=== PATIENT | female | born 1970 | race Caucasian/White ===

== ENCOUNTER 2023-09-25 18:16 | Observation (INO) | payer MEDICAID ==
[2023-09-25] MEDS ORDERED: Sodium Chloride 0.9% 10 ML Syringe FLUSH PRN (19:01)
[2023-09-25 19:17] LABS: BASOPHILS ABSOLUTE AUTO 0.05 K/uL (0.00-0.20); BASOPHILS PERCENT AUTO 0.5 % (0.0-2.0); EOSINOPHILS ABSOLUTE AUTO 0.17 K/uL (0.00-0.50); EOSINOPHILS PERCENT AUTO 1.9 % (0.0-5.0); HEMATOCRIT 36.3 % (34.0-46.0); HEMOGLOBIN 12.4 g/dL (11.7-15.5); LYMPHOCYTES ABSOLUTE AUTO 2.14 K/uL (0.50-3.50); LYMPHOCYTES PERCENT AUTO 23.5 % (10.0-50.0); MEAN CORPUSCULAR HEMOGLOBIN 31.7 pg (28.2-33.3); MEAN CORPUSCULAR HGB CONC 34.2 g/dL (31.7-36.0); MEAN CORPUSCULAR VOLUME 92.8 fL (84.0-98.0); MONOCYTES ABSOLUTE AUTO 0.72 K/uL (0.00-1.00); MONOCYTES PERCENT AUTO 7.9 % (2.0-14.0); NEUTROPHILS ABSOLUTE AUTO 6.04 K/uL (1.40-7.00); NEUTROPHILS PERCENT AUTO 66.2 % (45.0-80.0); PLATELET COUNT,PLT 214 K/uL (150-350); RED BLOOD CELL COUNT 3.91 M/uL (3.77-5.09); RED CELL DISTRIBUTION WIDTH 12.4 % (11.2-14.1); WHITE BLOOD CELL COUNT,WBC 9.1 K/uL (4.0-10.2)
[2023-09-25 19:32] LABS: ALBUMIN 3.6 g/dL (3.4-5.0); BILIRUBIN TOTAL 0.4 mg/dL (0.2-1.0); CARBON DIOXIDE,CO2 33.3 mmol/L (21.0-32.0); CREATININE 0.6 mg/dL (0.51-1.17); EST CRCL DRUG DOSING (CG) 81.82 mL/min; ETHANOL BLOOD MEDICAL 0.039 g/dL (0.000-0.080); MAGNESIUM 1.6 mg/dL (1.8-2.4); POTASSIUM,K 3.2 mmol/L (3.5-5.1); PROTEIN TOTAL,TP 6.9 g/dL (6.4-8.2)
[2023-09-25 19:33] LABS: ANION GAP 10.9 meq/L (7-15)
[2023-09-25] MEDS ORDERED: Orphenadrine 60 MG/2 ML Inj IM ONE (20:15)
[2023-09-25] MEDS ORDERED: Potassium Bicarbonate/Cit Ac 20 MEQ Effervescent Tab PO ONE (20:17)
[2023-09-25] MEDS ORDERED: Magnesium Sulfate/Water 2 GM in Premix Bag 1 BAG IV ONE (20:17)
[2023-09-25] MEDS: Ketorolac 15 MG/ML SDV IVPUSH SCH (21:13)
[2023-09-26] MEDS: Ketorolac 15 MG/ML SDV IVPUSH SCH (03:06)
[2023-09-26 05:49] VITALS: BP 116/79; PULSE 74
[2023-09-26] MEDS ORDERED: Potassium Bicarbonate/Cit Ac 20 MEQ Effervescent Tab PO ONE (06:00)
[2023-09-26 06:29] LABS: APPEARANCE,URINE CLOUDY; BILIRUBIN,URINE NEGATIVE (NEGATIVE); COLOR,URINE YELLOW; GLUCOSE,URINE NEGATIVE (NEGATIVE); KETONES,URINE NEGATIVE (NEGATIVE); LEUKOCYTE ESTERASE,URINE TRACE (NEGATIVE); NITRITE,URINE NEGATIVE (NEGATIVE); OCCULT BLOOD,URINE TRACE-INTACT (NEGATIVE); PH,URINE 7.5 (5.0-9.0); PROTEIN,URINE NEGATIVE (NEGATIVE); UROBILINOGEN,URINE 0.2 E.U./dL (0.2-1.0)
[2023-09-26 07:00] LABS: BACTERIA,URINE MANY /HPF (NONE TO FEW); RBC,URINE 0-5 /HPF
[2023-09-26 07:41] LABS: CALCIUM 8.8 mg/dL (8.5-10.1); CARBON DIOXIDE,CO2 31.7 mmol/L (21.0-32.0); CREATININE 0.75 mg/dL (0.51-1.17); EST CRCL DRUG DOSING (CG) 65.46 mL/min; MAGNESIUM 1.9 mg/dL (1.8-2.4); POTASSIUM,K 4.2 mmol/L (3.5-5.1)
[2023-09-26 07:53] LABS: ANION GAP 11.5 meq/L (7-15)
[2023-09-26] MEDS ORDERED: ARIPiprazole 10 MG Tab PO SCH (08:00)
[2023-09-26] MEDS ORDERED: Orphenadrine 100 MG Tab.ER PO SCH (08:00)
[2023-09-26] MEDS ORDERED: valACYclovir 1,000 MG Tab PO SCH (08:00)
[2023-09-26] MEDS ORDERED: buPROPion 150 MG Tab.ER PO SCH (08:00)
[2023-09-26] MEDS ORDERED: lamoTRIgine 100 MG Tab PO SCH (08:00)
[2023-09-26] MEDS ORDERED: FLUoxetine 20 MG Cap PO SCH (08:00)
== END 2023-09-26 08:26 | disposition home or self-care (01) ==
LOC: LL.ED 18:16 → LL.MS 19:20
PROVIDERS: ADMIT Emergency Medicine; ATTEND Emergency Medicine
DX: M54.50 Low back pain, unspecified (principal); G89.29 Other chronic pain; F41.9 Anxiety disorder, unspecified; F32.A Depression, unspecified; F17.210 Nicotine dependence, cigarettes, uncomplicated; Z79.899 Other long term (current) drug therapy
CPT/HCPCS: 36415; 72100; 80048; 80053; 80307; 81001; 81003; 83735; 85025; 87086; 96365; 96366; 96372; 96375; 99285; A9270-GY; G0378; J1885; J2360; J3475; J3490

== ENCOUNTER 2024-02-14 13:10 | Emergency (ER) | payer MEDICAID ==
[2024-02-14] MEDS ORDERED: Sodium Chloride 0.9% 10 ML Syringe FLUSH PRN (13:36)
[2024-02-14] MEDS ORDERED: Naloxone 0.4 MG/ML SDV IVPUSH PRN (13:40)
[2024-02-14] MEDS: fentaNYL 50 MCG/ML SDV IVPUSH ONE (13:45)
[2024-02-14 13:46] LABS: BASOPHILS ABSOLUTE AUTO 0.02 K/uL (0.00-0.20); BASOPHILS PERCENT AUTO 0.1 % (0.0-2.0); EOSINOPHILS ABSOLUTE AUTO 0.05 K/uL (0.00-0.50); EOSINOPHILS PERCENT AUTO 0.3 % (0.0-5.0); HEMATOCRIT 32.3 % (34.0-46.0); HEMOGLOBIN 10.6 g/dL (11.7-15.5); LYMPHOCYTES ABSOLUTE AUTO 1.87 K/uL (0.50-3.50); LYMPHOCYTES PERCENT AUTO 11.8 % (10.0-50.0); MEAN CORPUSCULAR HEMOGLOBIN 33.8 pg (28.2-33.3); MEAN CORPUSCULAR HGB CONC 32.8 g/dL (31.7-36.0); MEAN CORPUSCULAR VOLUME 102.9 fL (84.0-98.0); MONOCYTES ABSOLUTE AUTO 0.41 K/uL (0.00-1.00); MONOCYTES PERCENT AUTO 2.6 % (2.0-14.0); NEUTROPHILS ABSOLUTE AUTO 13.53 K/uL (1.40-7.00); NEUTROPHILS PERCENT AUTO 85.2 % (45.0-80.0); PLATELET COUNT,PLT 221 K/uL (150-350); RED BLOOD CELL COUNT 3.14 M/uL (3.77-5.09); WHITE BLOOD CELL COUNT,WBC 15.9 K/uL (4.0-10.2)
[2024-02-14] MEDS ORDERED: levETIRAcetam in NaCl (iso-os) 3,000 MG in Premix Bag 1 BAG IV ONE (13:48)
[2024-02-14 13:50] LABS: INR 1.1 (0.9-1.1); PROTHROMBIN TIME 10.9 SEC (9.0-11.1)
[2024-02-14 13:56] LABS: ALBUMIN 3.3 g/dL (3.4-5.0); BILIRUBIN TOTAL 0.3 mg/dL (0.2-1.0); CALCIUM 8.6 mg/dL (8.5-10.1); CARBON DIOXIDE,CO2 30.7 mmol/L (21.0-32.0); CREATININE 1.13 mg/dL (0.51-1.17); EST CRCL DRUG DOSING (CG) 43.45 mL/min; ETHANOL BLOOD MEDICAL 0.003 g/dL (0.000-0.080); PROTEIN TOTAL,TP 6.2 g/dL (6.4-8.2)
[2024-02-14 14:02] LABS: ANION GAP 12.7 meq/L (7-15)
[2024-02-14 14:03] LABS: POTASSIUM,K 2.4 mmol/L (3.5-5.1)
[2024-02-14] MEDS: Sodium Chloride 0.9% 500 ML IV SCH (14:19)
[2024-02-14] MEDS: levETIRAcetam in NaCl (iso-os) 500 MG in Premix Bag 1 BAG IV ONE (14:20)
[2024-02-14] MEDS: Potassium Chloride 10 MEQ Tab.ER PO SCH ×2 (14:43→14:44)
[2024-02-14] MEDS: Potassium Bicarbonate/Cit Ac 20 MEQ Effervescent Tab PO SCH (14:58)
[2024-02-14] MEDS: Potassium Chloride Riders 10 MEQ in Premix Bag 1 BAG IV SCH (15:06)
[2024-02-14 17:01] LABS: LACTIC ACID 1.7 mmol/L (0.4-2.0)
[2024-02-14] MEDS: Acetaminophen 500 MG Tab PO ONE (18:22)
[2024-02-14] MEDS: Ketorolac 30 MG/ML SDV IVPUSH ONE (18:24)
== END 2024-02-14 19:30 | disposition home or self-care (01) ==
LOC: LL.ED 13:10
DX: G40.909 Epilepsy, unspecified, not intractable, without status epilepticus (principal); S09.90XA Unspecified injury of head, initial encounter; E87.6 Hypokalemia; Z79.899 Other long term (current) drug therapy; W18.09XA Striking against other object with subsequent fall, initial encounter
CPT/HCPCS: 36415; 70450; 71045; 80053; 80307; 83605; 84132; 84484; 85025; 85610; 93005; 96361; 96374; 96375; 99285-25; A9270-GY; J1885; J1953; J3010; J3480; J7040

== ENCOUNTER 2024-10-01 14:47 | Emergency (ER) | payer MEDICAID ==
[2024-10-01 15:22] LABS: BASOPHILS ABSOLUTE AUTO 0.06 K/uL (0.00-0.20); BASOPHILS PERCENT AUTO 0.9 % (0.0-2.0); EOSINOPHILS ABSOLUTE AUTO 0.07 K/uL (0.00-0.50); HEMATOCRIT 31.9 % (34.0-46.0); HEMOGLOBIN 10.9 g/dL (11.7-15.5); IMMATURE GRAN ABSOLUTE AUTO 0.01 10^3/uL (0.00-0.50); IMMATURE GRAN PERCENT AUTO 0.1 % (0.0-5.0); LYMPHOCYTES ABSOLUTE AUTO 1.26 K/uL (0.50-3.50); LYMPHOCYTES PERCENT AUTO 17.9 % (10.0-50.0); MEAN CORPUSCULAR HEMOGLOBIN 35.3 pg (28.2-33.3); MEAN CORPUSCULAR HGB CONC 34.2 g/dL (31.7-36.0); MEAN CORPUSCULAR VOLUME 103.2 fL (84.0-98.0); MONOCYTES ABSOLUTE AUTO 0.53 K/uL (0.00-1.00); MONOCYTES PERCENT AUTO 7.5 % (2.0-14.0); NEUTROPHILS ABSOLUTE AUTO 5.12 K/uL (1.40-7.00); NEUTROPHILS PERCENT AUTO 72.6 % (45.0-80.0); PLATELET COUNT,PLT 176 K/uL (150-350); RED BLOOD CELL COUNT 3.09 M/uL (3.77-5.09); RED CELL DISTRIBUTION WIDTH 14.4 % (11.2-14.1); WHITE BLOOD CELL COUNT,WBC 7.1 K/uL (4.0-10.2)
[2024-10-01 15:27] LABS: APPEARANCE,URINE CLEAR; BILIRUBIN,URINE NEGATIVE (NEGATIVE); COLOR,URINE YELLOW; GLUCOSE,URINE NEGATIVE (NEGATIVE); KETONES,URINE NEGATIVE (NEGATIVE); LEUKOCYTE ESTERASE,URINE NEGATIVE (NEGATIVE); NITRITE,URINE NEGATIVE (NEGATIVE); OCCULT BLOOD,URINE NEGATIVE (NEGATIVE); PH,URINE 6.5 (5.0-9.0); PROTEIN,URINE 100 mg/dL (NEGATIVE)
[2024-10-01 15:30] LABS: RBC,URINE 0-5 /HPF; WBC,URINE 0-5 /HPF
[2024-10-01 15:42] LABS: ALANINE AMINOTRANSFERASE,ALT 54 U/L (12-78); ALBUMIN 3.8 g/dL (3.4-5.0); ALKALINE PHOSPHATASE 97 IU/L (46-116); ASPARTATE AMNIOTRANSFERASE,AST 46 U/L (15-37); BILIRUBIN TOTAL 1.1 mg/dL (0.2-1.0); BLOOD UREA NITROGEN,BUN 6 mg/dL (7-18); CALCIUM 8.9 mg/dL (8.5-10.1); CARBON DIOXIDE,CO2 30.8 mmol/L (21.0-32.0); CHLORIDE,CL 96 mmol/L (98-107); CREATININE 0.53 mg/dL (0.51-1.17); GLUCOSE RANDOM 104 mg/dL (70-99); SODIUM,NA 136 mmol/L (136-145)
[2024-10-01] MEDS: levETIRAcetam 500 MG Tab PO ONE (15:45)
[2024-10-01 15:48] LABS: ANION GAP 11.6 meq/L (7-15); ESTIMATED GFR 110 mL/min (>=60); POTASSIUM,K 2.4 mmol/L (3.5-5.1)
[2024-10-01] MEDS: Potassium Bicarbonate/Cit Ac 20 MEQ Effervescent Tab PO ONE (15:57)
[2024-10-01 16:36] LABS: AMPHETAMINES SCREEN, URINE NEGATIVE (NEGATIVE); BARBITURATE SCREEN,URINE NEGATIVE (NEGATIVE); BENZODIAZEPINES SCREEN,URINE NEGATIVE (NEGATIVE); COCAINE METABOLITES,URINE NEGATIVE (NEGATIVE); EDDP,URINE SCREEN NEGATIVE (NEGATIVE); METHAMPHETAMINES SCREEN, URINE NEGATIVE (NEGATIVE); TCA SCREEN,URINE NEGATIVE (NEGATIVE); THC SCREEN,URINE 50 NG/ML NEGATIVE (NEGATIVE)
[2024-10-01 16:38] LABS: BUPRENORPHINE SCREEN,URINE NEGATIVE (NEGATIVE); OXYCODONE SCREEN,URINE NEGATIVE (NEGATIVE)
== END 2024-10-01 16:15 | disposition left against medical advice (07) ==
LOC: SUPCPDRO 14:47 → LL.ED 14:47
DX: S00.03XA Contusion of scalp, initial encounter (principal); E83.42 Hypomagnesemia; E87.6 Hypokalemia; Z77.9 Other contact with and (suspected) exposures hazardous to health; F17.210 Nicotine dependence, cigarettes, uncomplicated; Z79.899 Other long term (current) drug therapy; W19.XXXA Unspecified fall, initial encounter
CPT/HCPCS: 36415; 80053; 80305-QW; 80307; 81001; 83735; 85025; 93005; 99285; A9270-GY

== ENCOUNTER 2025-04-08 15:32 | Emergency (ER) | payer MEDICAID ==
[2025-04-08] MEDS ORDERED: Sodium Chloride 0.9% 10 ML Syringe FLUSH PRN (15:37)
[2025-04-08 16:00] LABS: BASOPHILS ABSOLUTE AUTO 0.07 K/uL (0.00-0.20); BASOPHILS PERCENT AUTO 1.2 % (0.0-2.0); EOSINOPHILS ABSOLUTE AUTO 0.08 K/uL (0.00-0.50); EOSINOPHILS PERCENT AUTO 1.4 % (0.0-5.0); LYMPHOCYTES ABSOLUTE AUTO 3.05 K/uL (0.50-3.50); LYMPHOCYTES PERCENT AUTO 51.8 % (10.0-50.0); MEAN CORPUSCULAR HEMOGLOBIN 33.9 pg (28.2-33.3); MEAN CORPUSCULAR HGB CONC 35.1 g/dL (31.7-36.0); MEAN CORPUSCULAR VOLUME 96.6 fL (84.0-98.0); MONOCYTES PERCENT AUTO 5.1 % (2.0-14.0); NEUTROPHILS ABSOLUTE AUTO 2.39 K/uL (1.40-7.00); NEUTROPHILS PERCENT AUTO 40.5 % (45.0-80.0); PLATELET COUNT,PLT 148 K/uL (150-350); RED BLOOD CELL COUNT 3.83 M/uL (3.77-5.09); RED CELL DISTRIBUTION WIDTH 15.3 % (11.2-14.1); WHITE BLOOD CELL COUNT,WBC 5.9 K/uL (4.0-10.2)
[2025-04-08 16:35] LABS: ALANINE AMINOTRANSFERASE,ALT 80 U/L (12-78); ALBUMIN 3.6 g/dL (3.4-5.0); ALKALINE PHOSPHATASE 133 IU/L (46-116); ANION GAP 9.4 meq/L (7-15); ASPARTATE AMNIOTRANSFERASE,AST 108 U/L (15-37); BILIRUBIN TOTAL 0.2 mg/dL (0.2-1.0); BLOOD UREA NITROGEN,BUN 10 mg/dL (7-18); CARBON DIOXIDE,CO2 29.6 mmol/L (21.0-32.0); CHLORIDE,CL 99 mmol/L (98-107); CREATININE 0.39 mg/dL (0.51-1.17); ESTIMATED GFR 118 mL/min (>=60); GLUCOSE RANDOM 85 mg/dL (70-99); MAGNESIUM 1.2 mg/dL (1.8-2.4); POTASSIUM,K 3.5 mmol/L (3.5-5.1); PROTEIN TOTAL,TP 7.1 g/dL (6.4-8.2); SODIUM,NA 138 mmol/L (136-145)
== END 2025-04-08 17:08 | disposition home or self-care (01) ==
LOC: LL.ED 15:32
DX: S06.0X0A Concussion without loss of consciousness, initial encounter (principal); F10.10 Alcohol abuse, uncomplicated; W19.XXXA Unspecified fall, initial encounter
CPT/HCPCS: 36415; 70450; 80053; 80307; 83735; 85025; 99284